=== PATIENT | female | born 1940 | race Caucasian/White ===

== ENCOUNTER 2025-01-02 12:07 | Emergency (ER) | payer OTHER ==
[~2025-01-02] VITALS: Ht 162.6 cm; Wt 64.4 kg
== END 2025-01-02 15:52 | disposition home or self-care (01) ==
LOC: ER 12:10
DX: R53.81 Other malaise (principal); L21.9 Seborrheic dermatitis, unspecified; Z88.8 Allergy status to other drugs, medicaments and biological substances